=== PATIENT | female | born 1950 | race Native Hawaiian/Other Pacific Islander ===

== ENCOUNTER 2021-07-19 23:54 | Emergency (ER) | payer OTHER ==
[~2021-07-19] VITALS: Ht 157.5 cm; Wt 66.8 kg
[2021-07-20 00:03] VITALS: BP 150/71; TEMP 97.8
[2021-07-20 00:49] LABS: PLATELET COUNT 164 K/uL (152-353)
[2021-07-20 00:58] LABS: POTASSIUM 4.3 mmol/L (3.6-5.2)
[2021-07-20] MEDS ORDERED: DIVA250T PO ×2 (09:31→09:44)
[2021-07-20] MEDS ORDERED: DONEPEZIL HYDRO10 M1 PO (09:32)
[2021-07-20] MEDS ORDERED: FLUTICASON50 MCG/AC1 NAS (09:36)
[2021-07-20] MEDS ORDERED: LEVO0.08 PO (09:38)
[2021-07-20] MEDS ORDERED: DEEP SEA0.65 % NAS (09:43)
[2021-07-20] MEDS ORDERED: MELATONIN3 M1 PO (09:44)
[2021-07-20] MEDS ORDERED: MEMANTINE HYDRO10 MG PO (09:45)
[2021-07-20] MEDS ORDERED: SEROQUEL50 MG PO (09:46)
[2021-07-20] MEDS ORDERED: BUDE1AER3 INH (09:47)
[2021-07-20] MEDS ORDERED: VENLAFAXINE75 M2 PO (09:48)
[2021-07-20] MEDS ORDERED: DICL1GEL2 TOP (09:49)
[2021-07-20] MEDS ORDERED: VITAMIN C500 M7 PO (09:49)
[2021-07-20] MEDS ORDERED: TYLENOL325 MG PO (09:55)
[2021-07-20] MEDS ORDERED: MAGNSUS68 PO (09:56)
[2021-07-20] MEDS ORDERED: HEALTHY EYE1 PO (09:57)
[2021-07-20] MEDS ORDERED: XALATAN0.005 % OPTH (11:44)
== END 2021-07-20 01:29 | disposition other institution (70) ==
LOC: ED 23:54
PROVIDERS: Family Medicine
DX: R46.89 Other symptoms and signs involving appearance and behavior (principal); F31.89 Other bipolar disorder; Z11.52 Encounter for screening for COVID-19; Z04.6 Encounter for general psychiatric examination, requested by authority
CPT/HCPCS: 36415; 80053; 81000; 85027; 87635; 93005; 99283; U0003